=== PATIENT | male | born 1960 | race Caucasian/White ===

== ENCOUNTER 2019-03-15 09:04 | Day surgery (SDC) | payer BC ==
[~2019-03-15] VITALS: Ht 188 cm; Wt 140.2 kg
[~2019-03-15 09:04] MED LIST: AMLODIPINE5 MG PO; ASPIRIN LOW DOS81 M2 PR; BENAZEPRIL10 M1 PO; BENAZEPRIL10 MG PO; CLARITIN10 MG PO; FISH OIL1000 MG PO; GABAPENTIN100 MG PO; LIPITOR40 M1 PO; MEDDOSEPAK PO; METFORMIN500 MG PO; MULTI VIT PO; PEPCID20 MG PO; PERCOCET 10/31 COMBO PO; PRAVASTATIN20 MG PO; SOLFIBER1 POW PO; STOOL SOFTENER100 MG PO; ZINC25 MG PO; ZYRTEC10 MG PO
[2019-03-15 12:30] VITALS: BP 140/69
== END 2019-03-15 12:53 | disposition home or self-care (01) | DRG 951 ==
LOC: ENDO 09:04
PROVIDERS: ATTEND Internal Medicine Gastroenterology
PROC: 0DBN8ZX Excision of Sigmoid Colon, Via Natural or Artificial Opening Endoscopic, Diagnostic (ICD-10-PCS; principal; 2019-03-15)
PROC: 0DBL8ZX Excision of Transverse Colon, Via Natural or Artificial Opening Endoscopic, Diagnostic (ICD-10-PCS; 2019-03-15)
DX: Z12.11 Encounter for screening for malignant neoplasm of colon (principal); D12.3 Benign neoplasm of transverse colon; K63.5 Polyp of colon; K57.30 Diverticulosis of large intestine without perforation or abscess without bleeding; K64.8 Other hemorrhoids; K64.4 Residual hemorrhoidal skin tags; I10 Essential (primary) hypertension; E11.9 Type 2 diabetes mellitus without complications; Z79.84 Long term (current) use of oral hypoglycemic drugs

== ENCOUNTER 2020-04-03 08:52 | Emergency (ER) | payer BC ==
[~2020-04-03] VITALS: Ht 188 cm; Wt 140.9 kg
[2020-04-03 09:33] LABS: HEMATOCRIT 49.9 % (39.0-50.0); HEMOGLOBIN 16.3 g/dl (14.0-18.0); IMMATURE GRANULOCYTES 0.7 % (0.0-5.0); MEAN CELL VOLUME 89.6 fL CALC (80.0-100.0); MEAN CORPUSCULAR HGB 29.3 pG CALC (26.0-32.0); MEAN CORPUSCULAR HGB CONC 32.7 g/dL CAL (32.0-36.0); NEUT# 13.95 thou/uL (1.82-7.42); RED BLOOD COUNT 5.57 mill/uL (4.70-6.10); RED CELL DISTRI WIDTH 12.5 % (11.5-15.5)
[2020-04-03 09:40] LABS: ALBUMIN 4.2 g/dL (3.2-5.0); ALKALINE PHOSPHATASE 76 u/l (38-126); BUN 17 mg/dL (9-20); BUN/CREATININE RATIO 27 (12-20 (CALC)); CARBON DIOXIDE 29 mmol/l (22-30); CHLORIDE 101 mmol/l (95-108); CREATININE 0.6 mg/dL (0.7-1.3); GFR > 60 ML/MIN (>=60 (CALC)); GFR FOR AFR.AMER. > 60 ML/MIN (>=60 (CALC)); POTASSIUM 3.7 mmol/l (3.5-5.1); SGOT/AST 28 u/l (17-59); TOTAL PROTEIN 7.6 g/dL (6.3-8.2)
[2020-04-03 09:48] LABS: ANION GAP 11 (6-22 (CALC)); BILIRUBIN, TOTAL 0.7 mg/dL (0.0-1.4); SODIUM 137 mmol/l (137-146)
[2020-04-03] MEDS ORDERED: PREDNISONE50 MG PO ×2 (09:51)
[2020-04-03] MEDS ORDERED: EPIPEN 2-P0.3 MG/0.3 IM (09:51)
[2020-04-03 14:22] VITALS: BP 131/63
== END 2020-04-03 14:26 | disposition left against medical advice (07) | DRG 916 ==
LOC: ED 08:52
PROVIDERS: Family Medicine
DX: T78.2XXA Anaphylactic shock, unspecified, initial encounter (principal); L50.0 Allergic urticaria; I10 Essential (primary) hypertension; Z88.8 Allergy status to other drugs, medicaments and biological substances; Z91.19 Patient's noncompliance with other medical treatment and regimen

== ENCOUNTER 2020-04-30 17:48 | Observation (INO) | payer BC ==
[2020-04-30] VITALS (7 sets, daily range): BP systolic 150–190; BP diastolic 51–76
[~2020-04-30] VITALS: Ht 188 cm; Wt 135.4 kg
[~2020-04-30 17:48] MED LIST changes: +EPIPEN 2-P0.3 MG/0.3 IM; +PREDNISONE50 MG PO
--- NOTE | 2020-04-30 17:48 | NUR ---
PT AMB TO ROOM WITH STEADY GAIT
[2020-04-30 18:32] LABS: HEMOGLOBIN 14.5 g/dl (14.0-18.0); IMMATURE GRANULOCYTES 1.5 % (0.0-5.0); MEAN CORPUSCULAR HGB 28.4 pG CALC (26.0-32.0); MEAN CORPUSCULAR HGB CONC 31.5 g/dL CAL (32.0-36.0); NEUT# 4.95 thou/uL (1.82-7.42); RED BLOOD COUNT 5.11 mill/uL (4.70-6.10); RED CELL DISTRI WIDTH 13.2 % (11.5-15.5)
--- NOTE | 2020-04-30 18:38 | NUR ---
PT PROVIDED MEDS ORDERED, SEEN TO BE RESTING COMFORTABLY IN THE BED AT THIS TIME. SKIN STILL RED, THOUGH NOT DEEP COLOR, PT STATES ITCHING IS IMPROVED.
[2020-04-30 18:49] LABS: ALBUMIN 3.8 g/dL (3.2-5.0); ALKALINE PHOSPHATASE 77 u/l (38-126); BUN 15 mg/dL (9-20); BUN/CREATININE RATIO 24 (12-20 (CALC)); CHLORIDE 104 mmol/l (95-108); CREATININE 0.6 mg/dL (0.7-1.3); GFR > 60 ML/MIN (>=60 (CALC)); GFR FOR AFR.AMER. > 60 ML/MIN (>=60 (CALC)); SGOT/AST 24 u/l (17-59); SODIUM 137 mmol/l (137-146); TOTAL PROTEIN 6.4 g/dL (6.3-8.2)
[2020-04-30 18:50] LABS: ANION GAP 14 (6-22 (CALC)); BILIRUBIN, TOTAL 0.3 mg/dL (0.0-1.4); CARBON DIOXIDE 23 mmol/l (22-30)
--- NOTE | 2020-04-30 18:53 | NUR ---
RECEIVED HAND OFF REPORT FROM SUNNI, PATIENT AWAKE AND ALERT, NO C/O PAIN OR DISCOMFORT, NO S/S OF DISTRES SNOTED, RESPIRATIONS EVEN AND UNLABORED, AWAITING DIAGNOSTIC RESULTS.
--- NOTE | 2020-04-30 20:17 | NUR ---
HAND OFF REPORT GIVEN TO MALICK PHILLIPS, ICU
--- NOTE | 2020-04-30 20:30 | NUR ---
PT TO ICU BED 5 VIA WHEELCHAIR ACCOMPNIED BY ER NURSE. PT ABLE TO AMBULATE TO BED. PT IS ALERT AND ORIENTED X3. ADMISSION ASSESSMENT COMPLETED AT THIS TIME. PT IS ALERT AND ORIENTED X3. IV PATENT X1. ACCUCHECK COMPLETED 177. PT REQUESTED SOMETHING TO EAT. TURKEY SANDWICH AND YOGURT PROVIDED. ORIENTED TO ROOM AND UNIT. CALL LGT IN REACH. GERBER CONTINUE TO MONITOR.
--- NOTE | 2020-04-30 21:08 | NUR ---
PHARMACY CONSULT PLACED . PT STATES HE WAS STARTED ON A NEW MEDICTION FOR BLOOD PRESSURE A MONTH AGO. ON CLAIM HISTORY IT SHOWS DILTIAZEM HOWEVER THAT IS NOT LSTED ON HIS MEDICATION LIST. PT IS UNSURE OF WHAT IS CAUSING ALLERGIC RXN
--- NOTE | 2020-04-30 21:53 | NUR ---
PHONED RT FOR NEB TRATMENT
--- NOTE | 2020-04-30 22:00 | NUR ---
INTO ROOM TO MEDICATE PATIENT. PATIENT NOTED TO HAVE HIVES ON LEGS, FEET, UPPER TORSO, NECK AND EARS. MEDICATED WITH DECADROM AND INSULINE PER NOV. NOTIFIED DR RODRÍGUEZ.
--- NOTE | 2020-04-30 22:16 | NUR ---
PT PLACED ON O2 2L NC FOR O2 SATS OF 89%. WILL CONTINUE TO MONTIOR CLOSELY.
--- NOTE | 2020-04-30 22:24 | NUR ---
RT AT BEDSIDE FOR NEB TREATMENT
--- NOTE | 2020-04-30 22:39 | NUR ---
HIVES ARE NOTED TO BE WORSE AT THIS TIME. DR RODRÍGUEZ NOTIFIED.
--- NOTE | 2020-04-30 23:05 | NUR ---
SPOKE WITH DR RODRÍGUEZ REFERENCE THE WORSENING OF HIVES. NEW ORDERS RECEIVED. PT UPDATED ON PLAN OF CARE.
--- NOTE | 2020-04-30 23:38 | NUR ---
SPOKE WITH [facility] AND QUESTIONED WHY ZYRTEC WAS ON MAR AND NOT BREA ORDERED. [facility] STATES THAT ZYRTEC IS SUBSTITUTED FOR BREA.
--- NOTE | 2020-04-30 23:52 | NUR ---
PT MEDICATED WITH ZYRTEC PER MAR AT THIS TIME. HIVES NOTED TO BE WORSE THAN PREVIOUSLY WELL.
[2020-05-01] VITALS (8 sets, daily range): BP systolic 105–161; BP diastolic 58–71
--- NOTE | 2020-05-01 01:06 | NUR ---
PT RESTING IN BED WITH EYES CLOSED. AROUSES TO NURSE ENTERING ROOM. VSS ON MONITOR. PT DENIES SOB, CHEST PAIN/TIGHTNESS. HIVES REMAIN PRESENT AND SOME MORE PROMINENT. PT DENIES ANY MORE ITCHING. CALL LIGHT IN REACH. WILL CONTINUE TO MONITOR
--- NOTE | 2020-05-01 03:55 | NUR ---
PT RESTING IN BED WITH EYES CLOSED. RESP ARE EVEN AND UNLABORED. VSS ON MONITOR. CALL LIGHT IN REACH. WILL CONTINUE TO MONITOR.
--- NOTE | 2020-05-01 06:00 | NUR ---
PT RESTING IN BED. HIVES ARE BETTER ON LEGS AND WORSE ON TORSO. PT VS REMAIN STABLE ON MONIOTR.
[2020-05-01] MEDS ORDERED: PREDNISONE10 MG PO (07:48)
[2020-05-01] MEDS ORDERED: EPIPEN 2-P0.3 MG/0.3 IM (07:48)
[2020-05-01] MEDS ORDERED: ZYRTEC10 MG PO (07:48)
--- NOTE | 2020-05-01 08:39 | NUR ---
PT IS AWAKE, ALERT, ORIENTED X 3, AMBULATORY IN ROOM. LUNGS CLEAR, 2 LPM NC. PT WITH BODYWIDE HIVES NOTED, PT STATES NOT ITCHING NOW. DR ABRAHAM HAS BEEN IN TO SEE PT, WILL DISCHARGE HOME. PT AWARE, AGREEABLE. NO DISTRESS NOTED, NO WORSENING OF SYMPTOMS, NO SHORTNESS OF BREATH.
--- NOTE | 2020-05-01 09:38 | NUR ---
PT HAS BEEN DISCHARGED TO HOME. PT VERBALIZED UNDERSTANDING OF DC INSTRUCTIONS, IV REMOVED, PT TAKEN TO VEHICLE BY WHEELCHAIR IN STABLE CONDITION.
== END 2020-05-01 09:25 | disposition home or self-care (01) | DRG 916 ==
LOC: ED 17:48 → ED-I 19:06 → ED 19:32 → ICU 19:33
PROVIDERS: Family Medicine; ADMIT Internal Medicine; ATTEND Internal Medicine
DX: T78.2XXA Anaphylactic shock, unspecified, initial encounter (principal); I10 Essential (primary) hypertension; E11.40 Type 2 diabetes mellitus with diabetic neuropathy, unspecified; E78.5 Hyperlipidemia, unspecified; Z91.09 Other allergy status, other than to drugs and biological substances; Z79.84 Long term (current) use of oral hypoglycemic drugs; Z11.59 Encounter for screening for other viral diseases

== ENCOUNTER 2023-03-03 07:33 | Day surgery (SDC) | payer BC ==
[~2023-03-03] VITALS: Ht 188 cm; Wt 132.9 kg
[~2023-03-03 07:33] MED LIST changes: +AMLODIPINE BESYL5 MG PO; +ATORVASTATIN CA40 MG PO; +CHLORTHALIDONE25 MG PO; +FISH OIL1000 M1 PO; +PREDNISONE10 MG PO; +TRULICITY1.5 MG/0.5 IJ
[2023-03-03] MEDS ORDERED: LOSARTAN POTASS50 MG PO (08:29)
[2023-03-03 11:20] VITALS: BP 132/78
== END 2023-03-03 10:49 | disposition home or self-care (01) | DRG 724 ==
LOC: ORM 07:33
PROVIDERS: ATTEND Urology
PROC: 0VB03ZX Excision of Prostate, Percutaneous Approach, Diagnostic (ICD-10-PCS; principal; 2023-03-03)
DX: C61 Malignant neoplasm of prostate (principal); N40.2 Nodular prostate without lower urinary tract symptoms; I10 Essential (primary) hypertension; E11.40 Type 2 diabetes mellitus with diabetic neuropathy, unspecified; E78.5 Hyperlipidemia, unspecified; Z87.891 Personal history of nicotine dependence; Z79.84 Long term (current) use of oral hypoglycemic drugs
CPT/HCPCS: J1956